=== PATIENT | male | born 1975 | race Caucasian/White ===

== ENCOUNTER → 2017-05-13 | Outpatient (CLI) | payer OTHER ==
[~2017-05-13] VITALS: Ht 152.4 cm; Wt 88.9 kg
[~2017-05-13] MED LIST: CONEX TABLET1 EACH PO; DESOWEN TP; FLONASE ALLERG9.9 ML NS; TESSALON PERLE100 M1 PO; ZITHROMAX500 MG PO
== END | disposition home or self-care (01) ==
LOC: PPHC 17:26
DX: J00 Acute nasopharyngitis [common cold] (principal)

== ENCOUNTER 2022-11-01 08:45 | Emergency (ER) | payer OTHER ==
[~2022-11-01] VITALS: Ht 175.3 cm; Wt 80.7 kg
[2022-11-01] MEDS ORDERED: METFORMIN HCL500 M1 PO (08:56)
[2022-11-01] MEDS ORDERED: ATORVASTATIN CA20 MG PO (08:56)
[2022-11-01] MEDS ORDERED: ZITHROMAX500 MG PO (11:41)
== END 2022-11-01 11:57 | disposition home or self-care (01) ==
LOC: ER 08:45
DX: J39.9 Disease of upper respiratory tract, unspecified (principal); Z20.822 Contact with and (suspected) exposure to COVID-19

== ENCOUNTER 2023-05-05 09:40 | Emergency (ER) | payer OTHER ==
[~2023-05-05] VITALS: Ht 175.3 cm; Wt 86.2 kg
[~2023-05-05 09:40] MED LIST changes: +ATORVASTATIN CA20 MG PO; +METFORMIN HCL500 M1 PO
[2023-05-05 11:21] LABS: HEMATOCRIT 41.6 % (39.0-48.0); MEAN CELL VOLUME 82.7 fL (80.0-100.00); MEAN CORPUSCULAR HEMOGLOBIN 27.9 pg (27.00-32.0); MEAN CORPUSCULAR HGB CONC 33.7 g/dl (32.0-36.0); PLATELET COUNT 289 K/uL (150-450); RED BLOOD COUNT 5.03 M/uL (4.00-6.00); RED CELL DISTRIBUTION WIDTH 13.2 % (11.5-14.5)
== END 2023-05-05 12:21 | disposition home or self-care (01) ==
LOC: ER 09:41
PROVIDERS: General Practice
DX: J09.X2 Influenza due to identified novel influenza A virus with other respiratory manifestations (principal); Z20.822 Contact with and (suspected) exposure to COVID-19